=== PATIENT | female | born 1945 | race Caucasian/White ===

== ENCOUNTER 2023-05-22 13:33 | Emergency (ER) | payer MEDICARE, SELFPAY ==
[2023-05-22] VITALS (13 sets, daily range): BP systolic 168–210; BP diastolic 49–97; PULSE 62–86; RESP 16–28; TEMP 36.8; O2SAT 98–100
--- NOTE | ~2023-05-22 | CT_ITS ---
EXAMINATION: CTA BRAIN/CAROTID DATE: 05/22/2023 16:50 INDICATION: Dizziness. Occipital and upper cervical head and neck pain. TECHNIQUE: Computed tomographic angiography (CTA) of the head and neck was performed with 100 mL Omni paque-350 intravenous contrast. Multiplanar reconstructions and maximum intensity projection 3D-recon structions of the carotid arteries and of the intracranial arteries were created by the technologist on a separate workstation. Precontrast CT of the head was also obtained. Automated exposure control and iterative reconstruction technique were employed.The dose-length product was 1796.08 mGy-cm. COMPARISON: None. FINDINGS: Carotid arteries: Small amount of nonhemodynamically significant atherosclerotic plaque along the normal caliber visual ized portion of the aortic arch and great vessels arising from the arch with no dissection. There is minimal atherosclerotic plaque with 0% stenosis of the right carotid bulb relative to normal distal a rtery lumen diameter (NASCET criteria). There is small amount of atherosclerotic plaque with 20% sten osis of the left carotid bulb relative to normal distal artery lumen diameter. Bilateral vertebral ar teries are codominant with no evident hemodynamically significant stenosis. Severe cervical spondylos is. Mild emphysema in the visualized lungs with mild right and minimal left apical pleural-parenchyma l scarring. Head: No acute intracranial hemorrhage, acute infarction or abnormal extra axial fluid collection. There is mild scattered white matter hypoattenuation consistent with chronic small vessel ischemic disease. S ymmetric prominence of the sulci consistent with mild to moderate age-appropriate diffuse cerebral vo lume loss. Ventricles are normal and symmetric. No mass/mass effect. No abnormally enhancing lesions on the postcontrast images. The orbits, paranasal sinuses and mastoid air cells are normal. Intracranial arteries There is no hemodynamically significant stenosis in the vertebral, basilar and internal carotid arter ies. Vertebral arteries are codominant. There are no aneurysms identified. Both A1 and P1 segments a re patent. Patent anterior communicating artery. Cerebral arterial arborization appears symmetric. IMPRESSION: 1. 0% stenosis of the right carotid bulb relative to normal distal artery lumen diameter (NASCET crit eria). 2. 20% stenosis of the left carotid bulb relative to normal distal artery lumen diameter. 3. Age-related changes with mild to moderate diffuse volume loss and mild scattered white matter hypo attenuation consistent with chronic small vessel ischemic disease. No acute intracranial process or a bnormally enhancing brain lesions. 4. Unremarkable cerebral CT angiogram. Reviewed, dictated and finalized at location A. THERAPIST IMPRESSION: 1. 0% stenosis of the right carotid bulb relative to normal distal artery lumen diameter (NASCET criteria). 2. 20% stenosis of the left carotid bulb relative to normal distal artery lumen diameter. 3. Age-related changes with mild to moderate diffuse volume loss and mild scatt ered white matter hypoattenuation consistent with chronic small vessel ischemic disease. No acute intracranial process or abnormally enhancing brain lesions. 4. Unremarkable cerebral CT angiogram.
--- NOTE | 2023-05-22 13:29 | ECG_ITS ---
Measurements Intervals [place] Rate: 65 P: 27 HI: 154 QRS: 24 QRSD: 102 T: 17 QT: 425 QTc: 444 Interpretive Statements SINUS RHYTHM CONSIDER INFERIOR INFARCT, AGE INDETERMINATE BASELINE ARTIFACT- I, II, III, AVR, AVF ABNORMAL ECG NO PREVIOUS ECG AVAILABLE FOR COMPARISON Electronically Signed On 05-22-2023 14:53:03 DRESSAGE JUDGE by Tremaine Hair D.O.
[2023-05-22 14:23] LABS: Basophils Percent Auto 0.3 % (0.2-1.2); Eosinophils Absolute Auto 0.2 K/mm3 (0-0.3); Eosinophils Percent Auto 1.8 % (0-4.4); Hematocrit 41.4 % (37.0-47.0); Hemoglobin 13.9 g/dL (12.0-15.0); Immature Granulocyte Absolute 0.05 K/mm3 (0.00-0.031); Immature Granulocyte Percent A 0.5 % (0-0.5); Lymphocytes Absolute Auto 1.11 K/mm3 (0.9-3.2); Lymphocytes Percent Auto 10.2 % (18.3-44.2); Mean Corpuscular HGB Conc 33.6 g/dl (32-36); Mean Corpuscular Hemoglobin 31.2 pg (26-34); Mean Platelet Volume 9.8 fl (7.4-10.4); Monocytes Absolute Auto 0.4 K/mm3 (0.1-0.6); Monocytes Percent Auto 3.3 % (2.6-8.5); Neutrophils Absolute Auto 9.1 K/mm3 (1.3-6.7); Neutrophils Percent Auto 83.9 % (45.5-73.1); Platelet Count Result 295 k/mm3 (150-375); Red Blood Count 4.45 M/mm3 (4.2-5.4); Red Cell Distribution Width 13.7 % (11.5-14.5); White Blood Count 10.8 K/mm3 (4.5-10.0)
[2023-05-22 14:36] LABS: Alanine Aminotransferase 19 U/L (6-35); Albumin Level 4.6 g/dL (3.5-5.1); Alkaline Phosphatase 86 U/L (38-126); Anion Gap 6 mmol/L (8-16); Aspartate Amino Transferase 27 U/L (14-36); Bilirubin,Total 0.6 mg/dL (0.2-1.3); Blood Urea Nitrogen 12 mg/dL (7-17); Calcium 10.5 mg/dL (8.4-10.2); Carbon Dioxide 28 mmol/L (22-30); Chloride 97 mmol/L (98-107); Estimated CRCL calculation 56 ml/min; Estimated Glomerular Filt Rate > 60; Glucose 118 mg/dL (65-110); Potassium 4.4 mmol/L (3.4-5.0); Sodium 131 mmol/L (137-145)
[2023-05-22] MEDS: LABETALOL HCL INJ 100 MG/20 ML VIAL 10 MG IV PUSH ×2 (15:58→17:46)
--- NOTE | 2023-05-22 16:49 | ED.DIZZY ---
HPI - Dizziness General Chief Complaint: Dizziness Stated Complaint: dizzy, neck pain Time Seen by Provider: 05/22/23 16:13 Source: patient and family () Mode of arrival: EMS Limitations: no limitations History of Present Illness HPI Narrative: Patient presents with episode of neck pain and dizziness while at work. She is also having nausea and had an episode of vomiting. Neck pain is at the back of her neck/base of skull. She was noted to have high blood pressure which she states is unusual for her. she typically has a SBP <120mmHg. Her potassium was recently noted to be elevated and so her PCP changed her antihypertensive medication on Friday night. Dizziness occurred twice and she thinks both were preceded by position changes. Denies chest pain, dysphonia, vision changes/diplopia, aphasia. She did have a ringing in her ears. 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 HEAD: Normocephalic, atraumatic. EYES: Non injected, non icteric. No nystagmus. EOMI. ENT: Nares clear, no rhinorrhea or epistaxis. NECK: Supple. TTP at the base of skull / C1 but no bony step offs. CHEST: Speaking in complete sentences. No respiratory distress. HEART: Regular rate and rhythm. . ABDOMEN: Soft, nondistended. EXTREMITIES: Normal range of motion. No edema. SKIN: Warm, dry, no rash. NEURO: No focal deficits. Alert and oriented x3. Speaks without dysarthria or aphasia. Moves all extremities. Sensation intact throughout. PSYCH: Normal mood and affect. Course Vital Signs Vital signs: Vital Signs Temperature 98.2 F 05/22/23 13:28 Pulse Rate 64 05/22/23 13:28 Respiratory Rate 16 05/22/23 13:28 Blood Pressure 208/55 H 05/22/23 13:28 Pulse Oximetry 100 05/22/23 13:28 Oxygen Delivery Room Air 05/22/23 13:28 Temperature 98.2 F 05/22/23 13:28 Pulse Rate 76 05/22/23 19:54 Respiratory Rate 18 05/22/23 19:54 Blood Pressure 168/97 H 05/22/23 19:54 Pulse Oximetry 99 05/22/23 19:54 Oxygen Delivery Room Air 05/22/23 13:28 MDM - Dizziness MDM Narrative Medical decision making narrative: Patient presents from work where she experienced an episode of neck pain, dizziness, and nausea. Found to have elevated blood pressure. She is on a new antihypertensive regimen, changed due elevated potassium levels. In the ED she is afebrile with vital signs notable for hypertension. She is given 10mg labetalol which results in transient improvement of blood pressure. She remains symptomatic on my exam but without focal neuro deficits/nystagmus. Will give medication and pursue rest of work up to include CT imaging. On reassessment she notes symptoms are improving. Discussed the possibility of her staying for further work-up. Upon re-evaluation, she notes all symptoms have resolved. She has been up to the bedside commode and
[2023-05-22] MEDS: MECLIZINE HCL 25 MG TABLET PO (17:47)
[2023-05-22] MEDS: KETOROLAC 15 MG/ML VIAL (*BKC) IV PUSH (18:48)
[2023-05-22] MEDS: PROCHLORPERAZINE EDISYLATE 10 MG/2 ML VIAL 5 MG IV PUSH (18:48)
--- NOTE | 2023-05-22 19:20 | PC.NURSE ---
this rn assumed care of patient. this rn took patient report from YOVANNY Bush.
== END 2023-05-22 19:55 | disposition home or self-care (01) ==
PROVIDERS: Student in an Organized Health Care Education/Training Program; Emergency Provider Student in an Organized Health Care Education/Training Program; PCP Family Medicine
DX: R42 Dizziness and giddiness (principal); I10 Essential (primary) hypertension; Z79.899 Other long term (current) drug therapy
CPT/HCPCS: 36415; 70496; 70498; 80053; 85025; 93005; 96374; 96375; 96376; 99284; A9270; J0780; J1885; Q9967